=== PATIENT | male | born 1980 | race Caucasian/White ===

== ENCOUNTER 2018-07-02 09:04 | Emergency (ER) | payer OTHER, MEDICAID ==
[2018-07-02 09:24] VITALS: BP 117/69
[2018-07-02] MEDS ORDERED: DEXAMETHASONE 4 MG TABLET PO ONE (10:19)
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
== END 2018-07-02 10:51 | disposition home or self-care (01) ==
LOC: ER 09:04
DX: S16.1XXA Strain of muscle, fascia and tendon at neck level, initial encounter (principal); S46.912A Strain of unspecified muscle, fascia and tendon at shoulder and upper arm level, left arm, initial encounter; M54.6 Pain in thoracic spine; M54.2 Cervicalgia; M25.512 Pain in left shoulder; M54.9 Dorsalgia, unspecified; V87.7XXA Person injured in collision between other specified motor vehicles (traffic), initial encounter; F17.210 Nicotine dependence, cigarettes, uncomplicated
CPT/HCPCS: 99283; 99406